=== PATIENT | female | born 1940 | race Caucasian/White ===

== ENCOUNTER → 2017-08-16 | Outpatient (CLI) | payer OTHER, BC | LOC: FIMAGING 08:20 | PROVIDERS: ATTEND Physical Medicine & Rehabilitation Neuromuscular Medicine | DX: M51.36 Other intervertebral disc degeneration, lumbar region (principal); M12.88 Other specific arthropathies, not elsewhere classified, other specified site; M43.16 Spondylolisthesis, lumbar region; M48.061 Spinal stenosis, lumbar region without neurogenic claudication; M99.73 Connective tissue and disc stenosis of intervertebral foramina of lumbar region; M41.86 Other forms of scoliosis, lumbar region ==

== ENCOUNTER 2017-11-30 05:06 | Observation (INO) | payer OTHER ==
[2017-11-30] MEDS ORDERED: GABAPENTIN 300 MG CAP PO ONE (05:36)
[2017-11-30] MEDS ORDERED: ACETAMINOPHEN 500 MG TAB PO ONE (05:36)
[2017-11-30] MEDS ORDERED: ceFAZolin 2 GM/SWFI 2 GM/20 ML SYR IVP ONE (05:36)
[2017-11-30] MEDS ORDERED: LR 1,000 ML IV ONE (05:37)
[2017-11-30] MEDS ORDERED: LIDOCAINE 1% 2 ML INJ ID PRN (05:37)
--- NOTE | 2017-11-30 06:43 | PDHPUP ---
History & Physical Update H&P update statement: This history and physical update is based on an assessment of the patient which was completed after admission or registration (within 24 hours), but prior to the surgery/procedure. H&P update: H&P reviewed & patient examined, no change in patient's condition since H&P completed
--- NOTE | 2017-11-30 06:43 | PDANEPAE ---
ANE History of Present Illness Left lumbar radiculopathy for L3-5 decompression ANE Past Medical History - Cardiovascular History Hx Hypertension: No Hx Arrhythmias: No Hx Chest Pain: No Hx Coronary Artery / Peripheral Vascular Disease: No Hx CHF / Valvular Disease: No Hx Palpitations: No - Pulmonary History Hx COPD: No Hx Asthma/Reactive Airway Disease: No Hx Recent Upper Respiratory Infection: No Hx Oxygen in Use at Home: No Hx Sleep Apnea: No Sleep Apnea Screening Result - Last Documented: Negative Pulmonary History Comment: INFLUENZA A 09/2017 - Neurologic History Hx Cerebrovascular Accident: No Hx Seizures: No Hx Dementia: No Neurologic History Comment: INTRACEREBRAL ANEURSYM STABLE SINCE 2004 - Endocrine History Hx Diabetes: No Obesity: no Endocrine History Comment: HYPOTHYROID - Renal History Hx Renal Disorders: Yes Renal History Comment: UA FREQUENCY NO INCONT - Liver History Hx Hepatic Disorders: No - Neurological & Psychiatric Hx Hx Neurological and Psychiatric Disorders: Yes Neurological / Psychiatric History Comment: MIGRAINES WEEKLY - Cancer History Hx Cancer: Yes Cancer History Comment: SKIN - Congenital Disorder History Hx Congenital Disorders: No - GI History Gastrointestinal History Comment: DIVERTICULOSIS. 3X HEARTBURN USES OTC. ESOPHAGEAL DILATION 2010 - Other Health History Other Health History: SJOGRENS. VITAMIN D DEF. ALLERGIC RHINITIS. OSTEOPOROSIS. MIXED CONNECTIVE TISSUE DISORDER - Chronic Pain History Chronic Pain: Yes (LT LEG AND SCIATICA) - Surgical History Prior Surgeries: LOC/BSO. LT BUNIONECTOMY. RT KNEE SCOPE. ALEXANDREA CATARACT. TONSILLECTOMY ANE Review of Systems Review of Systems: - Exercise capacity METS (RN): 4 METS ANE Patient History - Allergies Allergies/Adverse Reactions: dicyclomine [From Bentyl] Allergy (Verified 11/25/17 12:20) Hives Penicillins Allergy (Verified 11/25/17 12:19) Hives tetracycline Allergy (Verified 11/25/17 12:20) Hives - Home Medications Home medications: home medication list seen and reviewed Home Medications: Acetaminophen [Tylenol ES 500 mg (*)] 500 mg PO DAILY PRN 11/23/17 [Last Taken 11/27/17] Aspirin [Aspirin 81mg (*)] 81 mg PO DAILY 11/23/17 [Last Taken 11/23/17] Cholecalciferol Vit D3 [Vitamin D3 (*)] 2,000 units PO BID 11/23/17 [Last Taken 11/27/17] Diclofenac Sodium 1% [Voltaren Gel (*)] 1 augie TP DAILY PRN 11/23/17 [Last Taken 11/23/17] Ezetimibe [Zetia 10 MG (*)] 10 mg PO DAILY 11/23/17 [Last Taken 11/23/17] Hydroxychloroquine Sulfate [Plaquenil 200 mg (*)] 200 mg PO DAILY 11/23/17 [ Last Taken 11/23/17] Levothyroxine [Synthroid 50 mcg (*)] 50 mcg PO DAILY06 11/23/17 [Last Taken 04:30] Naproxen Sodium [Aleve 220 MG (*)] 220 mg PO DAILY PRN 11/23/17 [Last Taken ] cycloSPORINE 0.05% [Restasis Opht Drops(*)] 1 drop EACHEYE BID 11/23/17 [Last Taken 11/30/17 04:30] - NPO status NPO Since - Liquids (Date): 11/29/17 NPO Since - Liquids (Time): 20:00 NPO Since - Solids (Date): 11/29/17 NPO Since - Solids (Time): 18:00 - Smoking Hx Smoking Status: Former smoker ANE Labs/Vital Signs - Vital Signs Blood Pressure: 147/82 Heart Rate: 85 Respiratory Rate: 16 O2 Sat (%): 94 Height: 163.83 cm Weight: 55.338 kg ANE Physical Exam - Airway Neck exam: FROM Mallampati Score: Class 1 Mouth exam: normal dental/mouth exam - Pulmonary Pulmonary: no respiratory distress - Cardiovascular Cardiovascular: regular rate and rhythym - ASA Status ASA Status: II ANE Anesthesia Plan Anesthesia Plan: general endotracheal anesthesia
[2017-11-30] MEDS ORDERED: VANCOMYCIN 1.5 GM in D5W 250 ML IV SCH (06:45)
[2017-11-30] MEDS ORDERED: VANCOMYCIN HCL/NORMAL SALINE 250 ML IV ONE (06:46)
[2017-11-30] MEDS ORDERED: PROPOFOL/EMULSION 500 MG/50 ML BOTTLE IV ONE (06:55)
[2017-11-30] MEDS ORDERED: fentaNYL 100 MCG/2 ML INJ ONE (06:55)
[2017-11-30] MEDS ORDERED: PROPOFOL 200 MG/20 ML VIAL ONE (06:55)
[2017-11-30] MEDS ORDERED: REMIFENTANIL HCL 1 MG VIAL ONE (06:55)
[2017-11-30] MEDS ORDERED: DEXAMETHASONE 4 MG/ML VIAL ONE (06:56)
[2017-11-30] MEDS ORDERED: LIDOCAINE 2% 5 ML SDV ONE (06:56)
[2017-11-30] MEDS ORDERED: ROCURONIUM 50 MG/5 ML VIAL ONE (06:56)
[2017-11-30] MEDS ORDERED: ONDANSETRON 4 MG/2 ML VIAL ONE (06:56)
[2017-11-30] MEDS ORDERED: VANCOMYCIN 1 GM in NS 250 ML IV ONE (07:00)
[2017-11-30] MEDS ORDERED: BUPIVACAINE 0.25% 30 ML SDV ONE ×2 (07:08→09:25)
[2017-11-30] MEDS ORDERED: CHLORHEXIDINE GLUC HIBICLENS 118 ML BTL TP ONE (07:08)
[2017-11-30] MEDS ORDERED: DEPO METHYLPREDNISOLONE 40 MG/ML SDV ONE (07:08)
[2017-11-30] MEDS ORDERED: BACITRACIN 50,000 UNITS/10 ML SYR IRR ONE (07:09)
[2017-11-30] MEDS ORDERED: THROMBIN (BOVINE) 5,000 UNIT VIAL TP ONE (07:09)
[2017-11-30] MEDS ORDERED: NAPROXEN SODIUM 220 MG TAB PO PRN (07:29)
[2017-11-30] MEDS ORDERED: ACETAMINOPHEN 500 MG TAB PO PRN ×2 (07:29→09:38)
[2017-11-30] MEDS ORDERED: ONDANSETRON 4 MG/2 ML VIAL IVP PRN ×2 (07:30→09:38)
[2017-11-30] MEDS ORDERED: ONDANSETRON DISINTEGRATING 4 MG TAB PO PRN (07:30)
[2017-11-30] MEDS ORDERED: diphenhydrAMINE 25 MG CAP PO PRN (07:30)
[2017-11-30] MEDS ORDERED: METHOCARBAMOL 750 MG TAB PO PRN (07:30)
[2017-11-30] MEDS ORDERED: HYDROmorphONE/DILAUDID 1 MG/ML INJ IVP PRN ×2 (07:30→09:38)
[2017-11-30] MEDS ORDERED: POLYETHYLENE GLYCOL 3350 17 GM PKT PO PRN (07:30)
[2017-11-30] MEDS ORDERED: LACTULOSE 20 GM/30 ML UDCUP PO PRN (07:30)
[2017-11-30] MEDS ORDERED: oxyCODONE IR 5 MG TAB PO PRN (07:30)
[2017-11-30] MEDS ORDERED: NS W/ 20 KCl/L 1,000 ML IV SCH (07:30)
[2017-11-30] MEDS ORDERED: BISACODYL 10 MG SUPP PR PRN (07:30)
[2017-11-30] MEDS ORDERED: MAGNESIUM HYDROXIDE 30 ML UDCUP PO PRN (07:30)
[2017-11-30] MEDS ORDERED: PHENYLEPHRINE 10 MG/ML SDV ONE (08:31)
--- NOTE | 2017-11-30 08:54 | POSTANESTH ---
Post Anesthetic Evaluation Cardiovascular Status: Normal, Stable Respiratory Status: Normal, Stable Level of Consciousness/Mental Status: Can Participate in Eval Pain Control: Adequate, Prn Tx Ordered Nausea/Vomiting Control: Adequate, Prn Tx Ordered Complications Possibly Related to Anesthesia: None Noted
[2017-11-30] MEDS ORDERED: LR 500 ML IV PRN (09:38)
[2017-11-30] MEDS ORDERED: fentaNYL 100 MCG/2 ML INJ IVP PRN (09:38)
[2017-11-30] MEDS ORDERED: PROMETHAZINE HCL 25 MG/ML INJ IVP PRN (09:38)
[2017-11-30] MEDS ORDERED: NALOXONE HCL 0.4 MG/ML INJ IVP PRN (09:38)
[2017-11-30] MEDS ORDERED: OXYCODONE/APAP 5/325 TAB PO PRN (09:38)
--- NOTE | 2017-11-30 10:13 | SOAPPROG ---
SOAP Progress Note Assessment/Plan: Post Op Visit: S: Awake and alert. Pt with expected lower back pain. LLE better O: AFVSS/PERRLA/EOMI no droop CN 2-12 grossly intact +lt touch 5/5 BLE = CDI A/P: 77 yo female that is s/p left LRD L3/4 and L4/5 -orders in place -call with any questions or concerns -pt seen by Dr Coburn as well -pt understands and agrees 11/30/17 10:10 Objective: Vital Signs Temp Pulse Resp BP Pulse Ox 36.5 C 85 16 147/82 H 94 11/30/17 06:20 11/30/17 06:50 11/30/17 06:50 11/30/17 06:50 11/30/17 06:50 ICD10 Worksheet Patient Problems: Problems Problem Status Onset Lumbar radicular pain Acute Lumbar stenosis Acute - ICD10 Problem Qualifiers (1) Lumbar stenosis (2) Lumbar radicular pain
--- NOTE | 2017-11-30 10:23 | GOP ---
[f rep st] OPERATIVE REPORT DATE OF OPERATION: 11/30/2017 SURGEON: Navin Coburn MD NEUROSURGEON: Navin Coburn MD. ANALYTICS INTERN: Soy Campos PA-C. PREOPERATIVE DIAGNOSIS: 1. Lumbar spondylosis, left lumbosacral radiculopathy in predominantly L4 pattern with left anterior lateral thigh and anterior small pain down to the top of the foot, stopping just lateral to the media l malleolus. 2. Lumbar degenerative disk disease. POSTOPERATIVE DIAGNOSIS: 1. Lumbar spondylosis, left lumbosacral radiculopathy in predominantly L4 pattern with left anterior lateral thigh and anterior small pain down to the top of the foot, stopping just lateral to the media l malleolus. 2. Lumbar degenerative disk disease. PROCEDURE PERFORMED: Left L3-4, L4-5 hemilaminotomy, medial facetectomy with foraminotomies at L3-4, L4-5 for decompression of the L3, L4, and L5 nerve roots (31130, [id number]), microscope. FINDINGS: ESTIMATED BLOOD LOSS: 25 cc. INDICATIONS: The patient is an elderly female who had terrible left radiating anterior and anterior lateral thigh pain, anterior small pain, whose MRI demonstrated severe disk degenerative disease at L3 -4, L4-5 and even at L2-3. At L2-3, the foramen was worse on the right than on the left, but she did have some left lateral recess stenosis at L2-3, although it is debatable whether the lateral recess even exists at the L2-3 level, but her predominant complaint most correlated with the L4 nerve root a nd there is left lateral recess stenosis at L3-4, L4-5 and as well some foraminal stenosis. There wa s also left L3-4 joint or a Tarlov cyst in the exiting L3 nerve root. I suggested a left decompressi on. I discussed with her the possibility that a more extensive surgery would be needed, but it is my hope she would respond to a decompression alone. The risk of CSF leak and nerve injury as well as t he possibility of her requiring a more extensive surgery including a spinal fusion was discussed. Eleanor adkins also knew there was a chance that surgery would fail to give her relief. She wanted to proceed. DESCRIPTION OF PROCEDURE: Patient was taken to the operating room, placed in supine position. Gener al anesthesia was begun. She was flipped prone onto the Todd frame. Care was taken to pad all poi nts of contact. Her back was sterilely prepped and draped in usual fashion. A localizing x-ray was taken. We made a midline incision, it was 3.5 cm in length. The subcutaneous tissue was dissected u sing the Bovie cautery down through the fascia and a subperiosteal dissection was made down the left L3-4, L4-5 lamina. A localizing x-ray was taken. A self-retaining retractor was placed. We drilled a left L3-4 hemilaminotomy with a medial facetectomy. We drilled a complete left L4 hemilaminectomy and a left L4-5 hemilaminotomy, medial facetectomy. We preserved the L3-4 facet joints and the IAP of L3 and L4 was completely preserved, but we did perform resection of the medial portion of both L3- 4, L4-5 facet joints without compromising the joint itself. We decompressed the lateral thecal sac a nd the traversing L5 nerve root at the L4-5 level, and the traversing L4 nerve root at the L3-4 level and then we worked our way into the neural foramen at each level, decompressing the exiting nerve ro ot. There was significant foraminal stenosis, and we undercut the superior articular process of both L4 and L5 to decompress the exiting nerve as best we could. Her dura was patulous and had a tendenc y to bulge up through the laminotomy defect and we used a jason drill bit thoroughly smooth out the entire laminotomy defect circumferentially to help prevent delay at her postoperative CSF leak. The re was really significant lateral recess stenosis at each level. We inspected the L3-4 and the L4-5 disk, but did not perform diskectomies. We simply decompressed the nerves that were passing over tho se disk bulges that were present at both levels, and it appeared that the lateral thecal sac had been compromised by being trapped between the disk bulge and the mesial portions of the facet joints at e ach level. We irrigated with antibiotic saline solution, placed a little Depo-Medrol with some Daniel ine over each nerve and then closed the incision in multiple layers using Vicryl sutures. Steri-Stri ps were applied to the skin. The patient was reversed from anesthesia, extubated, and transferred to recovery room in stable condition. COMPLICATIONS: None. /[id number]/MODL
[2017-11-30] MEDS: FAMOTIDINE 20 MG TAB PO SCH ×2 (13:58→20:34)
[2017-11-30] MEDS: SENNOSIDES/DOCUSATE SODIUM TAB PO SCH ×2 (14:01→20:34)
[2017-11-30] MEDS: HYDROXYCHLOROQUINE SULFATE 200 MG TAB PO SCH (14:02)
[2017-11-30] MEDS: CHOLECALCIFEROL VIT D3 2,000 UNITS TAB/CAP PO SCH ×2 (14:03→20:35)
[2017-11-30] MEDS: EZETIMIBE 10 MG TAB PO SCH (14:03)
[2017-11-30] MEDS ORDERED: VANCOMYCIN HCL/NORMAL SALINE 250 ML IV SCH (20:00)
[2017-11-30] MEDS: VANCOMYCIN 1 GM in NS 250 ML IV SCH (20:35)
[2017-11-30] MEDS: cycloSPORINE 0.05% 30 DROPERETTE/BOX EACHEYE SCH (20:36)
[2017-12-01 05:29] VITALS: O2SAT 94
[2017-12-01] MEDS ORDERED: LEVOTHYROXINE 50 MCG TAB PO SCH (06:00)
[2017-12-01 08:08] VITALS: BP 141/70; PULSE 99; RESP 16; TEMP 98.4
[2017-12-01] MEDS: CHOLECALCIFEROL VIT D3 2,000 UNITS TAB/CAP PO SCH (08:11)
[2017-12-01] MEDS: HYDROXYCHLOROQUINE SULFATE 200 MG TAB PO SCH (08:12)
[2017-12-01] MEDS: FAMOTIDINE 20 MG TAB PO SCH (08:12)
[2017-12-01] MEDS: EZETIMIBE 10 MG TAB PO SCH (08:12)
[2017-12-01] MEDS: SENNOSIDES/DOCUSATE SODIUM TAB PO SCH (08:12)
--- NOTE | 2017-12-01 08:15 | NEUSURGPN ---
Date of Surgery: 11/30/17 Post Op Day: 1 Assessment/Plan: Assessment: 77 yo female that is s/p left LRD L3/4 and L4/5 POD#1 Plan: -Patient doing well, pre operative left leg pain resolved -Patient well controlled with oral medications -Dressing slightly saturated, RN will change prior to discharge -Patient may discharge home today following PT/OT eval -Dr Coburn will see patient as well today -Please call neurosurgery with any questions/concerns Subjective: Patient doing well, left leg pain gone Objective: AxO x3 PERRL 5/5 BLE Sensation intact to light touch BLE Dressing slight saturation noted-now dry Neuro Check Frequency: per routine Urinary Catheter in Place: No - Physician Discussed Patient with DrDia: Almas Patient Seen by : Almas Neurosurgery Physical Exam - Vitals, I&O, Labs I and O 11/30/17 12/01/17 12/02/17 05:59 05:59 05:59 Intake Total 4015 Output Total 3830 Balance 185 Weight 55.338 kg Intake: Oral (ml) 3240 IV Intake (ml) 775 Output: Urine (ml) 3800 Bedside Commode 2200 Toilet 1600 Estimated Blood Loss (ml) 30 Other: Intake Quantity Yes Sufficient Number of Voids Bedside Commode 1 Toilet 1 Vital Signs Temp Pulse Resp BP Pulse Ox 36.9 C 99 16 141/70 H 94 12/01/17 08:00 12/01/17 08:00 12/01/17 08:00 12/01/17 08:00 12/01/17 08:00 ICD10 Worksheet Patient Problems: Problems Problem Status Onset Lumbar radicular pain Acute Lumbar stenosis Acute
[2017-12-01] MEDS: cycloSPORINE 0.05% 30 DROPERETTE/BOX EACHEYE SCH (08:16)
[2017-12-01] MEDS ORDERED: HYDROCODONE/APAP 10/325 TAB PO PRN (08:19)
[2017-12-01] MEDS: VANCOMYCIN 1 GM in NS 250 ML IV SCH (08:29)
--- NOTE | 2017-12-01 11:38 | ASDISCHSUM ---
Discharge Information Plan Status:Home with No Needs Medically Cleared to Leave: Discharge Date:12/01/2017 11:21 AM CM D/C Disposition:Home, Routine, Self-Care ADT D/C Disposition:Home, Routine, Self-Care Projected Discharge Date:12/01/2017 11:21 AM Transportation at D/C: Discharge Delay Reason: Follow-Up Date:12/01/2017 11:21 AM Discharge Slot: Final Diagnosis: Placement Information Patient Contact Information Contact Name:ELLI Relationship: Address:[address] Home Phone: City:[place] Alternate Phone: [facility]/Zip Code:[place] [address] Email: Financial Information Financial Class:Medicare Advantage Plans Primary Plan Desc:[employer] MEDICARE ADV Primary Plan Number:[id number] Secondary Plan Desc: Secondary Plan Number: Assessment Information [facility] CM Progress Note CM Note CM Note Notes: Pt medically stable for d/c, no CM d/c needs identified. PT/OT clear pt for home. Date Signed: 12/01/2017 11:36 AM Electronically Signed By:JOSE Mensah Intervention Information Intervention Type:*CHRIS-Signed Date of Service:12/01/2017 10:32 AM Patient Type:Observation Staff Member:Corrie Arias Hours: Discipline: Severity: Comment:
[2017-12-03] MEDS ORDERED: ENOXAPARIN 40 MG/0.4 ML SYR SC SCH (09:00)
== END 2017-12-01 11:21 | disposition home or self-care (01) ==
LOC: F3N 05:06
PROVIDERS: ADMIT Neurological Surgery; ATTEND Neurological Surgery
PROC: 00NY0ZZ Release Lumbar Spinal Cord, Open Approach (ICD-10-PCS; principal; 2017-11-30 07:30)
PROC: BR19YZZ Fluoroscopy of Lumbar Spine using Other Contrast (ICD-10-PCS; 2017-11-30 07:30)
DX: M48.062 Spinal stenosis, lumbar region with neurogenic claudication (principal); M54.16 Radiculopathy, lumbar region; M51.36 Other intervertebral disc degeneration, lumbar region; M43.06 Spondylolysis, lumbar region; Z87.891 Personal history of nicotine dependence; Z88.0 Allergy status to penicillin
CPT/HCPCS: 63047; 63048; 76001; 97161; 97166; G0378; G8978; G8979; G8980; J0171; J0690; J1030; J1100; J2370; J2405; J2704; J3010; J3370

== ENCOUNTER → 2018-05-17 | Outpatient (CLI) | payer OTHER, BC | DX: Z12.31 Encounter for screening mammogram for malignant neoplasm of breast (principal); M81.0 Age-related osteoporosis without current pathological fracture; Z78.0 Asymptomatic menopausal state; R29.890 Loss of height ==

== ENCOUNTER → 2018-06-28 | Outpatient (CLI) | payer OTHER, BC | LOC: FIMAGING 09:18 | PROVIDERS: ATTEND Nurse Practitioner | DX: M51.36 Other intervertebral disc degeneration, lumbar region (principal); M41.86 Other forms of scoliosis, lumbar region; M25.852 Other specified joint disorders, left hip ==

== ENCOUNTER 2018-08-02 05:24 | Inpatient (IN) | payer OTHER, BC ==
[2018-08-02] MEDS ORDERED: FAMOTIDINE 20 MG TAB PO ONE (05:43)
[2018-08-02] MEDS ORDERED: GABAPENTIN 300 MG CAP PO ONE (05:43)
[2018-08-02] MEDS ORDERED: ceFAZolin 2 GM/DEXTROSE 100 ML IV ONE (05:43)
[2018-08-02] MEDS ORDERED: ACETAMINOPHEN 325 MG TAB PO ONE (05:43)
[2018-08-02] MEDS ORDERED: DEXAMETHASONE 4 MG/ML VIAL IVP ONE (05:43)
[2018-08-02] MEDS ORDERED: LR 1,000 ML IV ONE (05:47)
[2018-08-02] MEDS ORDERED: TRANEXAMIC ACID 1,000 MG in NS 100 ML IV ONE (06:00)
[2018-08-02] MEDS ORDERED: ROPIVACAINE 0.2% 80 MG, EPINEPHrine 0.2 MG, KETOROLAC TROMETHAMINE 30 MG, morphINE 10 M... IU ONE (06:00)
[2018-08-02] MEDS ORDERED: ceFAZolin 1 GM/5 ML SYR ONE ×3 (06:52→07:38)
--- NOTE | 2018-08-02 07:00 | PDANEPAE ---
ANE History of Present Illness L total hip arthroplasty ANE Past Medical History - Cardiovascular History Hx Hypertension: No Hx Arrhythmias: No Hx Chest Pain: No Hx Coronary Artery / Peripheral Vascular Disease: No Hx CHF / Valvular Disease: No Hx Palpitations: No Cardiovascular History Comment: HPL - Pulmonary History Hx COPD: No Hx Asthma/Reactive Airway Disease: No Hx Recent Upper Respiratory Infection: No Hx Oxygen in Use at Home: No Hx Sleep Apnea: No Sleep Apnea Screening Result - Last Documented: Negative Pulmonary History Comment: INFLUENZA A 09/2017 - Neurologic History Hx Cerebrovascular Accident: No Hx Seizures: No Hx Dementia: No Neurologic History Comment: INTRACEREBRAL ANEURSYM STABLE SINCE 2004 - Endocrine History Hx Diabetes: No Hypothyroid: Yes Obesity: no Endocrine History Comment: HYPOTHYROID - Renal History Hx Renal Disorders: Yes Renal History Comment: UA FREQUENCY NO INCONT - Liver History Hx Hepatic Disorders: No - Neurological & Psychiatric Hx Hx Neurological and Psychiatric Disorders: Yes Neurological / Psychiatric History Comment: MIGRAINES WEEKLY - Cancer History Hx Cancer: Yes Cancer History Comment: SKIN - Congenital Disorder History Hx Congenital Disorders: No - GI History GERD: severe Hx Gastrointestinal Disorders: Yes Gastrointestinal History Comment: DIVERTICULOSIS. 3X HEARTBURN USES OTC. ESOPHAGEAL DILATION 2010 - Other Health History Other Health History: SJOGRENS. VITAMIN D DEF. ALLERGIC RHINITIS. OSTEOPOROSIS. MIXED CONNECTIVE TISSUE DISORDER - Chronic Pain History Chronic Pain: Yes (LT LEG AND SCIATICA) - Surgical History Prior Surgeries: LOC/BSO. LT BUNIONECTOMY. RT KNEE SCOPE. ALEXANDREA CATARACT. TONSILLECTOMY ANE Review of Systems Review of Systems: - Exercise capacity METS (RN): 4 METS ANE Patient History - Allergies Allergies/Adverse Reactions: dicyclomine [From Bentyl] Allergy (Verified 11/25/17 12:20) Hives Penicillins Allergy (Verified 11/25/17 12:19) Hives tetracycline Allergy (Verified 11/25/17 12:20) Hives - Home Medications Home Medications: Acetaminophen [Tylenol ES 500 mg (*)] 500 mg PO DAILY PRN 11/23/17 [Last Taken 07/26/18] Cholecalciferol Vit D3 [Vitamin D3 (*)] 2,000 units PO DAILY 11/23/17 [Last Taken 07/25/18] Ezetimibe [Zetia 10 MG (*)] 10 mg PO DAILY 11/23/17 [Last Taken 08/01/18] Hydroxychloroquine Sulfate [Plaquenil 200 mg (*)] 200 mg PO DAILY 11/23/17 [ Last Taken 08/01/18] Levothyroxine [Synthroid 25 mcg (*)] 25 mcg PO DAILY06 07/19/18 [Last Taken ] Propylene Glycol/Peg 400/Pf [Systane 0.3-0.4% Eye Drops] 1 each OP DAILY PRN [Last Taken 07/30/18] Teriparatide [Forteo] 200 mcg SQ DAILY 07/19/18 [Last Taken 08/01/18] Famotidine PRN 07/21/18 [Last Taken 07/28/18] Warfarin Sodium 20 mg PO 08/02/18 [Last Taken 08/01/18] - NPO status NPO Since - Liquids (Date): 08/02/18 NPO Since - Liquids (Time): 04:15 NPO Since - Solids (Date): 08/01/18 NPO Since - Solids (Time): 18:30 - Anes Hx Anes Hx: post operative nausea - Smoking Hx Smoking Status: Former smoker Marijuana use: No - Alcohol Use Alcohol Use: None - Family Anes Hx Family Anes Hx: none ANE Labs/Vital Signs - Vital Signs Blood Pressure: 133/82 Heart Rate: 84 Respiratory Rate: 16 O2 Sat (%): 16 Height: 165.74 cm Weight: 54.431 kg ANE Physical Exam - Airway Neck exam: FROM Mallampati Score: Class 2 Mouth exam: normal dental/mouth exam - Pulmonary Pulmonary: clear to auscultation - Cardiovascular Cardiovascular: regular rate and rhythym - ASA Status ASA Status: II ANE Anesthesia Plan Anesthesia Plan: general endotracheal anesthesia, spinal (possible difficulty/ impossibility of performing SAB discussed. Questions answered.)
[2018-08-02] MEDS ORDERED: MIDAZOLAM 2 MG/2 ML VIAL IVP ONE (07:04)
[2018-08-02] MEDS ORDERED: SCOPOLAMINE HYDROBROMIDE 1 MG/3 DAYS PATCH TD ONE (07:04)
[2018-08-02] MEDS ORDERED: fentaNYL 100 MCG/2 ML INJ ONE ×3 (07:10→10:11)
[2018-08-02] MEDS ORDERED: DEXAMETHASONE 4 MG/ML VIAL ONE (07:10)
[2018-08-02] MEDS ORDERED: PROPOFOL 200 MG/20 ML VIAL ONE ×2 (07:10→07:51)
[2018-08-02] MEDS ORDERED: ROCURONIUM 50 MG/5 ML VIAL ONE (07:10)
[2018-08-02] MEDS ORDERED: PHENYLEPHRINE 10 MG/ML SDV ONE (07:14)
[2018-08-02] MEDS ORDERED: BUPIVACAINE 0.5% 30 ML SDV ONE (07:17)
[2018-08-02] MEDS ORDERED: HYDROmorphONE/DILAUDID 2 MG/ML INJ ONE (08:24)
[2018-08-02] MEDS ORDERED: ONDANSETRON 4 MG/2 ML VIAL ONE (09:22)
[2018-08-02] MEDS ORDERED: NALOXONE HCL 0.4 MG/ML INJ IVP PRN (09:25)
[2018-08-02] MEDS ORDERED: fentaNYL 100 MCG/2 ML INJ IVP PRN (09:25)
[2018-08-02] MEDS ORDERED: HYDROmorphONE/DILAUDID 2 MG/ML INJ IVP PRN (09:25)
[2018-08-02] MEDS ORDERED: ONDANSETRON 4 MG/2 ML VIAL IVP PRN ×2 (09:25→09:50)
[2018-08-02] MEDS ORDERED: SUGAMMADEX SODIUM 200 MG/2 ML VIAL IVP ONE (09:31)
[2018-08-02] MEDS ORDERED: PROMETHAZINE HCL 25 MG SUPPR PR PRN (09:50)
[2018-08-02] MEDS ORDERED: PROMETHAZINE HCL 25 MG/ML INJ IVP PRN (09:50)
[2018-08-02] MEDS ORDERED: diphenhydrAMINE 25 MG CAP PO PRN (09:50)
[2018-08-02] MEDS ORDERED: POLYETHYLENE GLYCOL 3350 17 GM PKT PO PRN (09:50)
[2018-08-02] MEDS ORDERED: LACTULOSE 20 GM/30 ML UDCUP PO PRN (09:50)
[2018-08-02] MEDS ORDERED: TEMAZEPAM 15 MG CAP PO PRN (09:50)
[2018-08-02] MEDS ORDERED: oxyCODONE IR 5 MG TAB PO PRN (09:50)
[2018-08-02] MEDS ORDERED: MAGNESIUM HYDROXIDE 30 ML UDCUP PO PRN (09:50)
[2018-08-02] MEDS ORDERED: METOCLOPRAMIDE 10 MG/2 ML VIAL IVP PRN (09:50)
[2018-08-02] MEDS ORDERED: ONDANSETRON DISINTEGRATING 4 MG TAB PO PRN (09:50)
[2018-08-02] MEDS ORDERED: BISACODYL 10 MG SUPP PR PRN (09:50)
[2018-08-02] MEDS ORDERED: CYCLOBENZAPRINE 10 MG TAB PO PRN (09:50)
[2018-08-02] MEDS ORDERED: DIPHENOXYLATE/ATROPINE LOMOTIL 1 TAB PO PRN (09:50)
[2018-08-02] MEDS ORDERED: LR 1,000 ML IV SCH (10:00)
--- NOTE | 2018-08-02 10:10 | GOP ---
DATE OF OPERATION: 08/02/2018 SURGEON: Soy Lainez MD PROPERTY WORKER: Brian Samuels PA-C. PREOPERATIVE DIAGNOSIS: Left hip osteoarthritis. POSTOPERATIVE DIAGNOSIS: Left hip osteoarthritis. PROCEDURE PERFORMED: Left total hip arthroplasty. FINDINGS: DESCRIPTION OF PROCEDURE: Patient was taken to the operating room, administered general anesthesia, placed in supine position. The attempted spinal was unsuccessful. We rolled her into a right latera l decubitus position and prepped and draped the left hip and lower extremity in normal sterile fashio n. A direct superior approach was used. A 45-degree angle was taken from just the superior posterio r corner of the greater trochanter. Incision was carried through dermal subcutaneous tissues. The f ascia overlying the gluteus kush was split. We then digitally split and exposed down through the gluteus kush interval. Retractors were put in position. The fat pad was excised. The external r otators were uncovered. The piriformis and obturator internus were taken down as a conjoined unit. These were tagged with the 2-0 Ethibond suture and brought posteriorly into the subcutaneous tissues as a retractor and protector of the sciatic nerve. The posterior capsular incision was then made. T he femoral head was dislocated. The femoral neck cut was then made. It was measured preoperatively about 0.75 cm above the lesser trochanter. This was done with an oscillating saw. The head and neck segment was removed with a Steinmann pin. The acetabulum was exposed. Retractor was put in position. Fatty tissue was removed from the cotylo id notch. The reaming commenced medially with a size 47. We then went up to a size 52 in 1 mm incre ments. The 52 trial fit appropriately. The real cup was inserted. We subsequently exposed the femo ral neck. The retractors were positioned. The box osteotome was used to remove bone from the greate r trochanter. The starting reamer was placed down through the canal. Reaming commenced with a size 5 and extended up to a size 10. We initially took x-rays with a 9 stem and a [address] . We felt we could go up to a 10. We lateralized the direction of the trial. We subsequently reame d up to a size 10. The broach was then performed with a size 9, extended up to a size 10. The size 10 fit appropriately. The real stem was impacted into position. The trunnion was dried. A trial re duction was performed with a 0 head. We elected to go with this. The real head was opened. This wa s a size 36 mm 0 degree C-taper head. The Sia Secur-Fit max 127 degree neck angle hip stem was u tilized. The Trident X3 0 degree polyethylene insert was utilized. The Trident II titanium cluster hole acetabular shell, size 52, alpha code E was utilized. All the implants were inserted. The hip was put through a range of motion and felt to be stable. Irrigation performed with normal saline. O ur cocktail solution was used deeply. Closure was performed with the posterior hip capsule with a #2 Mersilene suture. Closure was performed of the external rotators and piriformis tendon with a #2 Mersilene suture. Closure was performed of the gluteal fascia with a 0 Vicryl suture followed by closure of the subcutaneous tissues with 2-0 V-Locs. A sterile compression dressing was applied. Th e patient tolerated the procedure well, was transferred back to recovery in stable condition. No ope rative complications. COMPLICATIONS: None. /[id number]/MODL
--- NOTE | 2018-08-02 12:07 | PDMN ---
Medical Necessity Medical necessity: [facility] IP only CPT 22267 L MURTAZA
[2018-08-02] MEDS: ACETAMINOPHEN 325 MG TAB PO SCH ×3 (12:16→23:40)
--- NOTE | 2018-08-02 15:57 | ASMTCMCOM ---
CM Note CM Note Notes: Spoke with pt in the room and with pt's RN. Pt was admitted for total hip replacement and had surgery today. PT is recommending [facility]. Pt is agreeable and would prefer [facility], a female therapist if possible, and they can accommodate her. Pt likely to discharge home with tomorrow. D/C Plan: [facility] Date Signed: 08/02/2018 03:56 PM Electronically Signed By:Lydia Pastor
[2018-08-02] MEDS ORDERED: WARFARIN SODIUM 5 MG TAB PO SCH (16:00)
[2018-08-02] MEDS: ceFAZolin 2 GM/DEXTROSE 100 ML IV SCH ×2 (16:07→23:41)
[2018-08-02] MEDS: FAMOTIDINE 20 MG TAB PO SCH (20:33)
[2018-08-02] MEDS: SENNOSIDES/DOCUSATE SODIUM TAB PO SCH (20:33)
[2018-08-03 05:23] LABS: INR 1.32 (0.83-1.16); PROTIME(PATIENT) 16.6 SEC (12.0-15.0)
[2018-08-03] MEDS: ACETAMINOPHEN 325 MG TAB PO SCH ×2 (05:57→12:29)
[2018-08-03] MEDS: SENNOSIDES/DOCUSATE SODIUM TAB PO SCH (08:46)
[2018-08-03] MEDS: FAMOTIDINE 20 MG TAB PO SCH (08:46)
--- NOTE | 2018-08-03 11:23 | SOAPPROG ---
SOAP Progress Note Assessment/Plan: Assessment: POD #1 s/p Left Total Hip Arthroplasty Plan: Patient doing very well She will follow posterior-hip precautions with use of walker WBAT She will take Warfarin for DVT prophylaxis. She has medication at home Oxycodone pain Rx will be given to patient for discharge. PT/OT recomment [facility] HPPT Discharge: Today 08/03/18 08/03/18 11:20 Subjective: She is in good spirit. Pain well contrilled. No N/V, CP, or SOB Objective: Vital Signs Temp Pulse Resp BP Pulse Ox 37.1 C 82 19 115/71 93 08/03/18 07:37 08/03/18 07:37 08/03/18 07:37 08/03/18 07:37 08/03/18 07:37 Laboratory Results 08/03/18 04:46 08/03/18 04:46 08/02/18 08/03/18 08/04/18 05:59 05:59 05:59 Intake Total 3150 Output Total 1550 300 Balance 1600 -300 PT 16.6 SEC (12.0-15.0) H 08/03/18 04:46 INR 1.32 (0.83-1.16) H 08/03/18 04:46 PHYSICAL EXAM LLE Aquacele Dressing in place. Clean and Dry Lifts leg well, good ankle ROM Distal Neurovasculature intact - Pending Discharge Pending Discharge Within 24 Hours: Yes Pending Discharge Date: 08/04/18 Pending Discharge Time: 15:00 ICD10 Worksheet Patient Problems: Problems Problem Status Onset Lumbar radicular pain Acute Lumbar stenosis Acute
--- NOTE | 2018-08-03 11:30 | PDIAF ---
- Diagnosis Diagnosis: Left Hip Primary osteoarthritis Code Status: Full Code - Medication Management Discharge Medications: electronically signed and located in the Home Medication List. - Orders Services needed: Home Care, Physical Therapy Home Care Face to Face: I certify that this patient was under my care and that I had the required [id number] encounter meeting the encounter requirements on the discharge day. My findings support the fact that the patient is homebound as defined in Home Care Face to Face Continued: CMS Chapter 7 Medicare Benefits Manual 30.1.1 , The condition of the patient is such that there exists a normal inability to leave home and consequently, leaving home would require a considerable and taxing effort. Diet Recommendation: no restrictions on diet - Follow Up Care Current Providers and Referrals: Aamir Iraheta MD [Primary Care Provider] - Soy Lainez MD [Medical Doctor] -
--- NOTE | 2018-08-03 11:35 | PDDCSUM ---
Discharge Summary Discharge Summary: Discharge Summary Orthopedic Surgery Diagnosis: Left hip primary osteoarthritis Procedure: Left Total Hip Arthroplasty. Admission date: 08/02/18 Discharge date: 08/03/18 Hospital Course: patient was monitored thoroughly throughout hospital course. Vitals remained stable. Intake and output were observed. Dressing was monitored. PT/OT met with patient during hospital stay. After examination by provider, and other healthcare staff, it was deemed appropriate to discharge patient home under the care of her . She will have home health care and PT for 1-2 weeks. Follow-up We will see patient back in clinic for routine post-op evaluation and repeat radiographs in 2 weeks. Brian TAVAREZ for attending Dr. Lainez
[2018-08-03 11:44] VITALS: BP 108/53
--- NOTE | 2018-08-03 15:44 | ASMTLACE ---
LACE Length of stay for Answers: 2 days current admission Acuity / Level of Answers: Yes Care: Did the patient have an inpatient admission? Comorbidities - select Answers: Opioid dependence all that apply / Chronic pain Other Notes: Hypothyroid; GERD # of Emergency department Answers: 0 visits in the last 6 months Score: 10 Date Signed: 08/03/2018 03:43 PM Electronically Signed By:JOSE Mensah
--- NOTE | 2018-08-03 15:45 | ASMTCMCOM ---
CM Note CM Note Notes: Pt medically stable for d/c with [facility]. Orders to be obtained via [employer]. Date Signed: 08/03/2018 03:44 PM Electronically Signed By:JOSE Mensah
--- NOTE | 2018-08-03 16:50 | ASDISCHSUM ---
Discharge Information Plan Status:Home with Home Health Medically Cleared to Leave: Discharge Date:08/03/2018 01:41 PM CM D/C Disposition:Home Health Service ADT D/C Disposition:Home Health Service Projected Discharge Date:08/03/2018 11:00 AM Transportation at D/C: Discharge Delay Reason: Follow-Up Date:08/03/2018 11:00 AM Discharge Slot: Final Diagnosis: Placement Information Referral Type:*Home Health Care Services Referral ID:[id number] Provider Name:[facility] Address 1:[address] [place] [address] Address 2: City:[place] Selection Factors: State:[place] Patient Contact Information Contact Name:ELLI Relationship: Address:[address] City:[place] Alternate Phone: State/Zip Code:[place] [address] Email: Financial Information Financial Class:Medicare Primary Plan Desc:MEDICARE INPATIENT Primary Plan Number:[id number] Secondary Plan Desc: OUT OF STATE [facility] Secondary Plan Number:[id number] Assessment Information LACE LACE Length of stay for Answers: 2 days current admission Acuity / Level of Answers: Yes Care: Did the patient have an inpatient admission? Comorbidities - select Answers: Opioid dependence all that apply / Chronic pain Other Notes: Hypothyroid; GERD # of Emergency department Answers: 0 visits in the last 6 months Score: 10 Date Signed: 08/03/2018 03:43 PM Electronically Signed By:JOSE Mensah [facility] CM Progress Note CM Note CM Note Notes: Spoke with pt in the room and with pt's RN. Pt was admitted for total hip replacement and had surgery today. PT is recommending [facility]. Pt is agreeable and would prefer [facility], a female therapist if possible, and they can accommodate her. Pt likely to discharge home with tomorrow. D/C Plan: [facility] Date Signed: 08/02/2018 03:56 PM Electronically Signed By:Lydia Pastor [facility] CM Progress Note CM Note CM Note Notes: Pt medically stable for d/c with [facility]. Orders to be obtained via [employer]. Date Signed: 08/03/2018 03:44 PM Electronically Signed By:JOSE Mensah Intervention Information
--- NOTE | 2018-08-04 09:11 | POSTANESTH ---
Post Anesthetic Evaluation Cardiovascular Status: Similar to Pre-Op Cond Respiratory Status: Normal, Stable Level of Consciousness/Mental Status: Moderately Sleepy Pain Control: Adequate, Prn Tx Ordered Nausea/Vomiting Control: Adequate, Prn Tx Ordered Complications Possibly Related to Anesthesia: None Noted
== END 2018-08-03 13:41 | disposition home health service (06) | DRG 470 ==
LOC: F3N 05:24
PROVIDERS: ADMIT Orthopaedic Surgery Sports Medicine; ATTEND Orthopaedic Surgery Sports Medicine
PROC: 0SRB04Z Replacement of Left Hip Joint with Ceramic on Polyethylene Synthetic Substitute, Open Approach (ICD-10-PCS; principal; 2018-08-02 07:15)
DX: M16.12 Unilateral primary osteoarthritis, left hip (principal); E03.9 Hypothyroidism, unspecified; K21.9 Gastro-esophageal reflux disease without esophagitis; M35.00 Sjogren syndrome, unspecified
CPT/HCPCS: 97110-GP; 97116-GP; 97161-GP; 97166-GO; 97535-GO; G8978-GP-CI; G8978-GP-CJ; G8979-GP-CI; G8980-GP-CI; G8987-GO-CI; G8988-GO-CI; G8989-GO-CI; J0171; J0690; J1100; J1170; J1885; J2250; J2270; J2370; J2405; J2704; J2795; J3010